=== PATIENT | male | born 1950 | race Caucasian/White ===

== ENCOUNTER 2017-10-27 02:29 | Inpatient (IN) | payer MEDICARE, OTHER ==
[2017-10-27 02:58] LABS: ADD MAN DIFF? NO
[2017-10-27] MEDS: ONDANSETRON 4 MG INJ IV (03:01)
[2017-10-27] MEDS: morphine 4 MG/ML VIAL IV (03:01)
[2017-10-27] MEDS: SOD CHLORIDE 0.9% 500 ML IV (03:02)
[2017-10-27 03:04] LABS: BASOPHILS % 0.5 % (0.0-2.0); EOSINOPHILS # 0.1 10^3/ul (0.0-0.5); EOSINOPHILS % 1.8 % (0.0-7.0); HEMATOCRIT 50.8 % (42.0-52.0); HEMOGLOBIN 16.8 g/dl (14.0-18.0); LYMPHOCYTES # 1.2 10^3/ul (0.8-2.9); LYMPHOCYTES % 20.2 % (15.0-51.0); MEAN CORPUSCULAR HEMOGLOBIN 30.8 pg (29.0-33.0); MEAN CORPUSCULAR HGB CONC 33.1 g/dl (32.0-37.0); MEAN CORPUSCULAR VOLUME 93.2 fl (82.0-101.0); MEAN PLATELET VOLUME 9.9 fl (7.4-10.4); MONOCYTE # 0.6 10^3/ul (0.3-0.9); MONOCYTES % 10.5 % (0.0-11.0); NEUTROPHILS % 66.8 % (39.0-77.0); PLATELET COUNT 179 10^3/UL (140-415); RED BLOOD COUNT 5.45 10^6/ul (4.70-6.10); RED CELL DISTRIBUTION WIDTH 13.8 % (11.5-14.5)
[2017-10-27 03:23] LABS: ALANINE AMINOTRANSFERASE 28 IU/L (13-69); ALBUMIN/GLOBULIN RATIO 1.42; ALKALINE PHOSPHATASE 83 IU/L (42-121); ANION GAP 12 (8-16); ASPARTATE AMINO TRANSFERASE 20 IU/L (15-46); BILIRUBIN,INDIRECT 1.2 mg/dl (0-1.1); BILIRUBIN,TOTAL 1.2 mg/dl (0.2-1.3); BLOOD UREA NITROGEN 25 mg/dl (7-20); CALCIUM 9.7 mg/dl (8.4-10.2); CARBON DIOXIDE 28 mmol/L (21-31); CHLORIDE 104 mmol/L (97-110); CREATININE 1.19 mg/dl (0.61-1.24); GLUCOSE 111 mg/dl (70-220); LIPASE 213 U/L (23-300); POTASSIUM 4.4 mmol/L (3.5-5.1); SODIUM 140 mmol/L (135-144); TOTAL PROTEIN 6.8 g/dl (6.1-8.1)
[2017-10-27 03:31] LABS: LACTIC ACID 0.9 mmol/L (0.5-2.0)
[2017-10-27] MEDS: HYDROmorphONE 0.5 MG/0.5 ML SYG IV (04:46)
[2017-10-27] MEDS ORDERED: HYDROmorphONE 0.5 MG/0.5 ML SYG IV (06:00)
[2017-10-27] MEDS ORDERED: NACL 0.9% 3 ML SYG IV (06:00)
[2017-10-27] MEDS ORDERED: ONDANSETRON 4 MG INJ IV (06:00)
[2017-10-27 08:51] LABS: CARCINOEMBRYONIC ANTIGEN 0.4 ng/ml (0.0-5.0)
[2017-10-27 08:55] LABS: CANCER ANTIGEN 19-9 15.7 U/ml (0.0-37.0)
[2017-10-27 08:55] LABS: ALPHA FETOPROTEIN 1.82 IU/L (0.00-7.21)
[2017-10-27] MEDS: SOD CHLORIDE 0.9% 100 ML (10:07)
[2017-10-27] MEDS: IOHEXOL 300MG/ML 150 ML BTL (10:08)
[2017-10-27] MEDS: ACETAMINOPHEN 325 MG TAB PO (10:12)
[2017-10-27] MEDS: DOCUSATE SODIUM 100 MG CAP PO ×2 (13:53→20:35)
[2017-10-27] MEDS: ASA/ACETAMINOPHEN/CAFF TAB PO (14:23)
[2017-10-27] MEDS: TAMSULOSIN (SR) 0.4 MG CAP PO (21:44)
[2017-10-28 05:08] LABS: ADD MAN DIFF? NO
[2017-10-28 05:13] LABS: BASOPHILS % 0.5 % (0.0-2.0); EOSINOPHILS # 0.1 10^3/ul (0.0-0.5); EOSINOPHILS % 1.8 % (0.0-7.0); HEMATOCRIT 48.7 % (42.0-52.0); HEMOGLOBIN 16.3 g/dl (14.0-18.0); LYMPHOCYTES # 0.9 10^3/ul (0.8-2.9); LYMPHOCYTES % 16.5 % (15.0-51.0); MEAN CORPUSCULAR HEMOGLOBIN 30.9 pg (29.0-33.0); MEAN CORPUSCULAR HGB CONC 33.5 g/dl (32.0-37.0); MEAN CORPUSCULAR VOLUME 92.2 fl (82.0-101.0); MEAN PLATELET VOLUME 10.3 fl (7.4-10.4); MONOCYTE # 0.5 10^3/ul (0.3-0.9); MONOCYTES % 9.3 % (0.0-11.0); NEUTROPHIL # 4.1 10^3/ul (1.6-7.5); NEUTROPHILS % 71.7 % (39.0-77.0); PLATELET COUNT 168 10^3/UL (140-415); RED BLOOD COUNT 5.28 10^6/ul (4.70-6.10); RED CELL DISTRIBUTION WIDTH 13.7 % (11.5-14.5)
[2017-10-28 05:13] LABS: WHITE BLOOD COUNT 5.7 10^3/ul (4.8-10.8)
[2017-10-28 07:57] LABS: ALANINE AMINOTRANSFERASE 30 IU/L (13-69); ALBUMIN 3.8 g/dl (3.3-4.9); ALKALINE PHOSPHATASE 69 IU/L (42-121); ANION GAP 10 (8-16); ASPARTATE AMINO TRANSFERASE 26 IU/L (15-46); BILIRUBIN,INDIRECT 1.9 mg/dl (0-1.1); BILIRUBIN,TOTAL 1.9 mg/dl (0.2-1.3); BLOOD UREA NITROGEN 14 mg/dl (7-20); CALCIUM 9.1 mg/dl (8.4-10.2); CARBON DIOXIDE 27 mmol/L (21-31); CHLORIDE 105 mmol/L (97-110); CHOL/HDL RATIO 6.7 RATIO; CHOLESTEROL 202 mg/dl (100-200); CREATININE 1.03 mg/dl (0.61-1.24); GLUCOSE 94 mg/dl (70-220); HDL CHOLESTEROL 30 mg/dl (30-78); LDL CHOLESTEROL,CALCULATED 134 mg/dl; POTASSIUM 4.1 mmol/L (3.5-5.1); SODIUM 138 mmol/L (135-144); TOTAL PROTEIN 6.5 g/dl (6.1-8.1); TRIGLYCERIDES 189 mg/dl (0-149)
[2017-10-28] MEDS: ASA/ACETAMINOPHEN/CAFF TAB PO (08:38)
[2017-10-28] MEDS: DOCUSATE SODIUM 100 MG CAP PO (08:38)
[2017-10-28 14:49] LABS: HEMOGLOBIN A1C 5.9 % (0-5.9)
[2017-10-28] MEDS ORDERED: TAMSULOSIN (SR) 0.4 MG CAP PO (21:00)
[2017-10-29 05:44] LABS: PROSTATE SPECIFIC ANTIGEN 1.7 ng/ml (0.0-4.0)
[2017-11-02 14:06] LABS: PSA, FREE 0.4 ng/mL
== END 2017-10-28 13:00 | disposition home or self-care (01) | DRG 725 ==
LOC: E/R 02:29 → MS1 05:01
DX: N40.0 Benign prostatic hyperplasia without lower urinary tract symptoms (principal); I71.02 Dissection of abdominal aorta; C61 Malignant neoplasm of prostate; D18.03 Hemangioma of intra-abdominal structures; E78.5 Hyperlipidemia, unspecified; R51 Headache; Z96.652 Presence of left artificial knee joint; R73.03 Prediabetes; K21.9 Gastro-esophageal reflux disease without esophagitis; K59.00 Constipation, unspecified; K80.20 Calculus of gallbladder without cholecystitis without obstruction
CPT/HCPCS: 36415; 70450; 71260; 74176; 74177; 76705; 80053; 80061; 82105; 82378; 83036; 83605; 83690; 84153; 84154; 84443; 85025; 86301; 96374; 96375; 99285-25